=== PATIENT | female | born 1945 | race Caucasian/White ===

== ENCOUNTER 2019-04-25 12:06 | Inpatient (IN) | payer MEDICARE, OTHER ==
[~2019-04-25] VITALS: Ht 162.5 cm; Wt 72.7 kg
[2019-04-25 12:17] VITALS: BP 149/62
[2019-04-25 12:23] LABS: BASO # 0.1 10*3/uL (0.0-0.1); BASO % 0.9 % (0.0-1.0); EOS # 0.3 10*3/uL (0.0-0.4); EOS % 2.5 % (1.0-4.0); HEMATOCRIT 49.2 % (37.0-47.0); HEMOGLOBIN 16.3 g/dl (12.0-16.0); LYMPH # 2.9 10*3/uL (1.3-4.4); LYMPH % 26.4 % (27.0-41.0); MEAN CORPUSCULAR HGB 30.8 pg (27.0-31.0); MEAN CORPUSCULAR HGB CONC 33.1 g/dl (33.0-37.0); MEAN PLATELET VOLUME 9.3 fl (9.6-12.3); MONO % 9.4 % (3.0-9.0); NEUT # 6.6 10*3/uL (2.3-7.9); NEUT % 60.4 % (47.0-73.0); PLATELET COUNT AUTOMATED 318 10*3/uL (130-400); RED BLOOD COUNT 5.29 10*6/uL (4.10-5.10); RED CELL DISTRI WIDTH 12.5 % (0-14.5); WHITE BLOOD COUNT 10.9 10*3/uL (4.8-10.8)
[2019-04-25 12:37] LABS: ACT PARTIAL THROMBO TIME 24.4 SECONDS (20.0-32.1); INTERNATIONAL NORM RATIO 0.9 (2.0-3.5)
[2019-04-25 12:41] LABS: ALBUMIN 3.3 gm/dl (3.1-4.5); ALKALINE PHOSPHATASE 89 U/L (45-117); BUN 14 mg/dl (7-24); CHLORIDE 105 mmol/L (98-107); CREATININE 0.95 mg/dL (0.55-1.02); POTASSIUM 4.2 mmol/L (3.5-5.1); SGOT/AST 20 IU/L (3-35); SGPT/ALT 31 U/L (12-78); SODIUM 138 mmol/L (136-145)
[2019-04-25 12:42] LABS: TROPONIN I < 0.015 ng/ml (<0.045)
[2019-04-25 12:47] VITALS: BP 120/56
[2019-04-25 13:32] VITALS: BP 108/54
--- NOTE | 2019-04-25 13:50 | NUR ---
PT GIVEN ICE WATER REQUESTED. NO OTHER VOICED NEEDS/COMPLAINTS. WILL CONTINUE TO MONITOR.
--- NOTE | 2019-04-25 14:21 | NUR ---
PATIENT EATING MEAL TRAY.
--- NOTE | 2019-04-25 14:45 | NUR ---
PT STABLE AND READY FOR TRANSPORT TO INPATIENT BED.
--- NOTE | 2019-04-25 14:52 | NUR ---
CCA 73, admitted to , under the services of SABINA Ferreira DO with a diagnosis of CHEST PAIN. Chief complaint is C/P AND ANXIETY. Patient arrived via ambulatory from ER. Monitor applied. Initial assessment completed. Vital signs taken and recorded. SABINA FERREIRA DO notified of admission to the unit. Orders received. See assessment for past medical history, medications and allergies. Patient and/or family oriented to unit. [address] visitation policy reviewed. Clothing/patient valuable form completed. SHWETA MORALES
--- NOTE | 2019-04-25 14:54 | NUR ---
PATIENT REQUESTS FLU VACCINE UPON DISCHARGE.
[2019-04-25 15:02] VITALS: BP 135/57
--- NOTE | 2019-04-25 15:07 | NUR ---
PATIENT'S WILL BRING MED LIST IN SO MEDS CAN BE REVIEWED PER POLICY.
[2019-04-25] MEDS ORDERED: WELLBUTRIN XL150 MG PO (15:23)
[2019-04-25] MEDS ORDERED: LEXAPRO10 MG PO (15:24)
[2019-04-25] MEDS ORDERED: KLONOPIN1 M1 PO ×2 (15:25→15:32)
[2019-04-25] MEDS ORDERED: RISPERDAL1 M1 PO (15:25)
[2019-04-25] MEDS ORDERED: LIPITOR20 MG PO (15:26)
[2019-04-25] MEDS ORDERED: Synthroid,Levo75 MCG PO (15:27)
[2019-04-25] MEDS ORDERED: ASPIRIN CHEWABL81 MG PO (15:27)
[2019-04-25] MEDS ORDERED: ZANAFLEX4 M1 PO (15:27)
[2019-04-25] MEDS ORDERED: INCRUSE ELLI62.5 MCG INH (15:29)
[2019-04-25] MEDS ORDERED: SYMB160 INH (15:31)
[2019-04-25] MEDS ORDERED: VITAMIN B121000 MC1 PO (15:34)
[2019-04-25] MEDS ORDERED: FISH OIL 1,2001 EACH PO (15:35)
[2019-04-25] MEDS ORDERED: D3-20002000 UNIT PO (15:38)
--- NOTE | 2019-04-25 15:39 | NUR ---
MED REC UPDATED PER POLICY.
--- NOTE | 2019-04-25 15:55 | NUR ---
PRINCESS BAILON NOTIFIED OF CONSULT.
--- NOTE | 2019-04-25 15:56 | NUR ---
'S OFFICE NOTIFIED OF CONSULT.
--- NOTE | 2019-04-25 16:34 | NUR ---
PT REQUESTED PO KLONIPIN PER PRN ORDER FOR C/O INCREASED ANXIETY. WILL MONITOR EFFECTIVENESS. FAMILY AT BEDSIDE.
--- NOTE | 2019-04-25 16:48 | NUR ---
IN TO SEE PATIENT.
[2019-04-25 20:00] VITALS: BP 147/70
[2019-04-26] VITALS: BP 131/60
[2019-04-26 06:41] LABS: BASO % 0.1 % (0.0-1.0); HEMATOCRIT 44.8 % (37.0-47.0); LYMPH # 1.3 10*3/uL (1.3-4.4); LYMPH % 7.6 % (27.0-41.0); MEAN CELL VOLUME 92.2 fl (81.0-99.0); MEAN CORPUSCULAR HGB 30.9 pg (27.0-31.0); MEAN CORPUSCULAR HGB CONC 33.5 g/dl (33.0-37.0); MEAN PLATELET VOLUME 9.6 fl (9.6-12.3); MONO # 0.5 10*3/uL (0.1-1.0); MONO % 2.9 % (3.0-9.0); NEUT # 15.4 10*3/uL (2.3-7.9); NEUT % 88.8 % (47.0-73.0); PLATELET COUNT AUTOMATED 314 10*3/uL (130-400); RED BLOOD COUNT 4.86 10*6/uL (4.10-5.10); RED CELL DISTRI WIDTH 12.2 % (0-14.5); WHITE BLOOD COUNT 17.4 10*3/uL (4.8-10.8)
[2019-04-26 06:54] LABS: ALBUMIN 2.8 gm/dl (3.1-4.5); ALKALINE PHOSPHATASE 72 U/L (45-117); BUN 17 mg/dl (7-24); CHLORIDE 108 mmol/L (98-107); CHOLESTEROL 124 mg/dL (<200); CREATININE 0.94 mg/dL (0.55-1.02); FREE T4 1.47 ng/dl (0.76-1.46); HDL CHOLESTEROL 51 mg/dl (40-60); LDL CHOLESTEROL 65 mg/dL (9-159); PHOSPHOROUS 2.9 mg/dL (2.5-4.9); SGOT/AST 14 IU/L (3-35); SGPT/ALT 22 U/L (12-78); SODIUM 138 mmol/L (136-145); TOTAL PROTEIN 6.2 gm/dL (6.4-8.2); TRIGLYCERIDES 42 mg/dl (<150); VLDL CHOLESTEROL 8 mg/dL (6-40)
[2019-04-26 07:00] LABS: POTASSIUM 4.2 mmol/L (3.5-5.1)
--- NOTE | 2019-04-26 07:20 | NUR ---
ARRIVED ON SHIFT, INTRODUCED TO PATIENT, BEDSIDE REPORT RECEIVED, WHITE BOARD UPDATED, NO NEEDS VOICED AT THIS TIME.
--- NOTE | 2019-04-26 07:42 | NUR ---
Shift chart check completed.
[2019-04-26 08:00] VITALS: BP 118/60
--- NOTE | 2019-04-26 09:00 | NUR ---
Theater Manager in to talk to patient. Patient states lives at home with . There are few steps in the home. Physician: harris sahu Pharmacy: [facility] [place] [facility]: none Patient's level of ADLs: INDEPENDENT Patient has working utilities: all working DME: none Follow-up physician's appointment after d/c: will be made by hospitalist nurse director upon discharge Does patient want to access PORTAL?: no Discharge plan discussed with patient, she is independent in adls and ambulation she states she will return home when medically stable and denies any home needs. EVELIN VALDIVIA
[2019-04-26 12:00] VITALS: BP 131/65
--- NOTE | 2019-04-26 14:28 | NUR ---
A 73, admitted to 5E, under the services of SABINA Ferreira DO with a diagnosis of UNCONTROLLED DIABETES. Chief complaint is ELEVATED BLOOS SUGAR. Patient arrived via wheel chair from ER. Monitor applied. Initial assessment completed. Vital signs taken and recorded. SABINA FERREIRA DO notified of admission to the unit. Orders received. See assessment for past medical history, medications and allergies. Patient and/or family oriented to unit. [facility] visitation policy reviewed. Clothing/patient valuable form completed. CALL PLACED TO DR. GAYTAN, ORDERS FOR LABS, PODIATRY CONSULT, GLUCOSE MONITOR AND NCS DIET. DR GAYTAN VERSED HE WOULD BE IN TO COMPLETE ALL OTHER ORDERS. LATOYA LANDRY
[2019-04-26 16:00] VITALS: BP 112/52
--- NOTE | 2019-04-26 16:30 | NUR ---
CALL PLACED TO PODIATRY ASVISED SHE WOULD BE UP TO SEE PATIENT.
[2019-04-26 20:00] VITALS: BP 125/54
--- NOTE | 2019-04-26 23:49 | NUR ---
24 HR chart check completed.
[2019-04-27] VITALS: BP 100/50
--- NOTE | 2019-04-27 07:15 | NUR ---
ARRIVED ON SHIFT, INTRODUCED TO PATIENT, BEDSIDE REPORT RECEIVED, WHITE BOARD UPDATED, NO NEEDS VOICED AT THIS TIME.
[2019-04-27 07:47] VITALS: BP 124/68
--- NOTE | 2019-04-27 07:50 | NUR ---
VITAL SIGNS STABLE, A&O X3, + PERIPHERAL PULSES, NO COMPLAINTS OF PAIN AT THIS TIME, LUNG SOUNDS WHEEZE B/L UPPER LOBES OTHERWISE CLEAR, HEART SOUNDS NORMAL, BOWEL SOUNDS X4, ABDOMEN SOFT, NON-DISTENDED, NON-TENDER, PT PLEASANT AND COOPERATIVE. LEFT ARM IV SITE DRY, INTACT, NO S/S OF INFECTION. NO OTHER COMPLAINTS AT THIS TIME, WILL CONTINUE TO MONITOR. LUIS OLIVEROS
--- NOTE | 2019-04-27 08:16 | NUR ---
Shift chart check completed.
--- NOTE | 2019-04-27 09:00 | NUR ---
case management visits with patient, she will return home today and denies any home needs
--- NOTE | 2019-04-27 10:01 | NUR ---
FAMILY VISITING. DR WILLETT TO SEE HER. SITTING IN BED WATCHING TV. NO OTHER COMPLAINTS AT THIS TIME, WILL CONTINUE TO MONITOR. DOMO ZIMMERMAN
[2019-04-27] MEDS ORDERED: ZITHROMAX500 MG PO (10:04)
[2019-04-27] MEDS ORDERED: PREDNISONE10 MG PO (10:04)
[2019-04-27] MEDS ORDERED: KLONOPIN1 M1 PO ×2 (10:11→10:57)
[2019-04-27] MEDS ORDERED: VIBRAMYCIN100 MG PO (10:57)
--- NOTE | 2019-04-27 11:15 | NUR ---
Discharge instructions reviewed with patient/family. Patient receptive and verbalizes understanding. Follow-up care arranged. Written instructions given to patient/family. Patient took all belongings. Hep Lock and telemetry removed, script given to her. Condition stable. Discharged via wheelchair. LUIS CHENG [facility] TAMERA BACA
== END 2019-04-27 11:15 | disposition home or self-care (01) | DRG 191 ==
LOC: ED 12:06 → EDHOLD 14:20 → 5E 14:20
PROVIDERS: Emergency Medicine; Registered Nurse; ADMIT Family Medicine
DX: J44.1 Chronic obstructive pulmonary disease with (acute) exacerbation (principal); E44.0 Moderate protein-calorie malnutrition; F33.1 Major depressive disorder, recurrent, moderate; E78.00 Pure hypercholesterolemia, unspecified; F41.1 Generalized anxiety disorder; E03.9 Hypothyroidism, unspecified; R07.9 Chest pain, unspecified; F17.210 Nicotine dependence, cigarettes, uncomplicated; E78.5 Hyperlipidemia, unspecified; D72.829 Elevated white blood cell count, unspecified; T38.0X5A Adverse effect of glucocorticoids and synthetic analogues, initial encounter; Y92.89 Other specified places as the place of occurrence of the external cause; Z88.0 Allergy status to penicillin; Z90.49 Acquired absence of other specified parts of digestive tract; Z90.710 Acquired absence of both cervix and uterus; Z98.51 Tubal ligation status; Z83.3 Family history of diabetes mellitus; Z82.49 Family history of ischemic heart disease and other diseases of the circulatory system; Z79.82 Long term (current) use of aspirin; Z79.899 Other long term (current) drug therapy; Z71.6 Tobacco abuse counseling; Z88.5 Allergy status to narcotic agent; Z68.27 Body mass index [BMI] 27.0-27.9, adult

== ENCOUNTER 2020-09-14 02:37 | Observation (INO) | payer MEDICARE, OTHER ==
[~2020-09-14] VITALS: Ht 162.5 cm; Wt 80.0 kg
[2020-09-14] VITALS (8 sets, daily range): BP systolic 108–143; BP diastolic 33–54
[~2020-09-14 02:37] MED LIST: ASPIRIN CHEWABL81 MG PO; D3-20002000 UNIT PO; FISH OIL 1,2001 EACH PO; INCRUSE ELLI62.5 MCG INH; KLONOPIN1 M1 PO; LEXAPRO10 MG PO; LIPITOR20 MG PO; PREDNISONE10 MG PO; RISPERDAL1 M1 PO; SYMB160 INH; Synthroid,Levo75 MCG PO; VIBRAMYCIN100 MG PO; VITAMIN B121000 MC1 PO; WELLBUTRIN XL150 MG PO; ZANAFLEX4 M1 PO; ZITHROMAX500 MG PO
[2020-09-14 03:29] LABS: BASO # 0.1 10*3/uL (0.0-0.1); BASO % 0.9 % (0.0-1.0); EOS # 0.2 10*3/uL (0.0-0.4); EOS % 2.2 % (1.0-4.0); HEMATOCRIT 45.4 % (37.0-47.0); LYMPH # 1.8 10*3/uL (1.3-4.4); LYMPH % 16.9 % (27.0-41.0); MEAN CELL VOLUME 92.8 fl (81.0-99.0); MEAN CORPUSCULAR HGB 30.5 pg (27.0-31.0); MEAN CORPUSCULAR HGB CONC 32.8 g/dl (33.0-37.0); MEAN PLATELET VOLUME 9.5 fl (9.6-12.3); MONO # 0.9 10*3/uL (0.1-1.0); MONO % 8.4 % (3.0-9.0); NEUT # 7.6 10*3/uL (2.3-7.9); NEUT % 71.2 % (47.0-73.0); PLATELET COUNT AUTOMATED 264 10*3/uL (130-400); RED BLOOD COUNT 4.89 10*6/uL (4.10-5.10); RED CELL DISTRI WIDTH 12.3 % (0-14.5); WHITE BLOOD COUNT 10.6 10*3/uL (4.8-10.8)
[2020-09-14 03:46] LABS: ALBUMIN 3.5 gm/dl (3.1-4.5); ALKALINE PHOSPHATASE 82 U/L (45-117); BUN 11 mg/dl (7-24); CHLORIDE 103 mmol/L (98-107); CREATININE 1.24 mg/dL (0.55-1.02); POTASSIUM 3.9 mmol/L (3.5-5.1); SGOT/AST 28 IU/L (3-35); SGPT/ALT 46 U/L (12-78); SODIUM 137 mmol/L (136-145); TOTAL PROTEIN 6.7 gm/dL (6.4-8.2)
[2020-09-14 03:53] LABS: TROPONIN I < 0.015 ng/ml (<0.045)
[2020-09-14 07:34] LABS: BILIRUBIN Negative (Negative); BLOOD Negative (Negative); CLARITY Clear (Clear); COLOR Yellow (Yellow); GLUCOSE Negative (Negative); KETONE Negative (Negative); LEUKO ESTERASE Negative (Negative); NITRITE Negative (Negative); SPECIFIC GRAVITY <= 1.005 (1.001-1.030); UROBILINOGEN 0.2 E.U./dl (0.0-1.0)
[2020-09-14 07:50] LABS: BACTERIA TRACE; WBC 0-2 wbc/hpf (0-5)
[2020-09-14] MEDS ORDERED: VITAMIN C500 M4 PO (11:28)
[2020-09-14] MEDS ORDERED: MAGNESIUM500 MG PO (11:29)
[2020-09-14] MEDS ORDERED: VITAMIN E200 UNIT PO (11:31)
[2020-09-14] MEDS ORDERED: VITAMIN D350 MC2 PO (11:32)
[2020-09-14] MEDS ORDERED: TRILIGY INH (11:33)
[2020-09-15] VITALS: BP 107/44
[2020-09-15 06:54] LABS: BASO # 0.1 10*3/uL (0.0-0.1); BASO % 1.1 % (0.0-1.0); EOS # 0.3 10*3/uL (0.0-0.4); EOS % 4.9 % (1.0-4.0); HEMATOCRIT 45.7 % (37.0-47.0); LYMPH # 2.2 10*3/uL (1.3-4.4); LYMPH % 35.5 % (27.0-41.0); MEAN CELL VOLUME 94.6 fl (81.0-99.0); MEAN CORPUSCULAR HGB CONC 31.7 g/dl (33.0-37.0); MEAN PLATELET VOLUME 9.7 fl (9.6-12.3); MONO # 0.6 10*3/uL (0.1-1.0); NEUT % 48.2 % (47.0-73.0); PLATELET COUNT AUTOMATED 257 10*3/uL (130-400); RED BLOOD COUNT 4.83 10*6/uL (4.10-5.10); RED CELL DISTRI WIDTH 12.5 % (0-14.5); WHITE BLOOD COUNT 6.3 10*3/uL (4.8-10.8)
[2020-09-15 07:08] LABS: ACT PARTIAL THROMBO TIME 23.6 SECONDS (20.0-32.1)
[2020-09-15 07:12] LABS: ALBUMIN 3.1 gm/dl (3.1-4.5); ALKALINE PHOSPHATASE 71 U/L (45-117); BUN 11 mg/dl (7-24); CHLORIDE 108 mmol/L (98-107); CHOLESTEROL 118 mg/dL (<200); CREATININE 1.02 mg/dL (0.55-1.02); FREE T4 1.43 ng/dl (0.76-1.46); HDL CHOLESTEROL 59 mg/dl (40-60); LDL CHOLESTEROL 45 mg/dL (9-159); POTASSIUM 4.2 mmol/L (3.5-5.1); SGOT/AST 23 IU/L (3-35); SGPT/ALT 38 U/L (12-78); SODIUM 139 mmol/L (136-145); TOTAL PROTEIN 6.2 gm/dL (6.4-8.2); TRIGLYCERIDES 72 mg/dl (<150); VLDL CHOLESTEROL 14 mg/dL (6-40)
[2020-09-15 08:00] VITALS: BP 120/58
== END 2020-09-15 11:00 | disposition home or self-care (01) ==
LOC: ED 02:37 → 5E 06:57 → EDHOLD 06:57 → 5E 08:53
PROVIDERS: Emergency Medicine; Social Worker Clinical; ADMIT Internal Medicine; ATTEND Internal Medicine
DX: R55 Syncope and collapse (principal); R51.9 Headache, unspecified; N17.0 Acute kidney failure with tubular necrosis; F41.1 Generalized anxiety disorder; F32.9 Major depressive disorder, single episode, unspecified; E03.9 Hypothyroidism, unspecified; N18.9 Chronic kidney disease, unspecified; R00.1 Bradycardia, unspecified; Z90.49 Acquired absence of other specified parts of digestive tract; Z90.710 Acquired absence of both cervix and uterus; Z90.89 Acquired absence of other organs; Z88.8 Allergy status to other drugs, medicaments and biological substances

== ENCOUNTER → 2021-06-26 | Outpatient (CLI) | payer MEDICARE, OTHER ==
[~2021-06-26] MED LIST changes: +MAGNESIUM500 MG PO; +TRILIGY INH; +VITAMIN C500 M4 PO; +VITAMIN D350 MC2 PO; +VITAMIN E200 UNIT PO
== END ==
LOC: US 13:16
PROVIDERS: ATTEND Orthopaedic Surgery
DX: S83.92XA Sprain of unspecified site of left knee, initial encounter (principal); D16.22 Benign neoplasm of long bones of left lower limb; M17.0 Bilateral primary osteoarthritis of knee; M79.605 Pain in left leg; D48.0 Neoplasm of uncertain behavior of bone and articular cartilage; M25.362 Other instability, left knee; M17.12 Unilateral primary osteoarthritis, left knee; X58.XXXA Exposure to other specified factors, initial encounter; Y93.89 Activity, other specified; Y92.89 Other specified places as the place of occurrence of the external cause; Y99.8 Other external cause status

== ENCOUNTER → 2021-06-29 | Outpatient (CLI) | payer MEDICARE, OTHER | END | disposition home or self-care (01) | LOC: US 13:47 | PROVIDERS: ATTEND Orthopaedic Surgery | DX: I73.9 Peripheral vascular disease, unspecified (principal); M25.362 Other instability, left knee; M17.0 Bilateral primary osteoarthritis of knee; M25.562 Pain in left knee; M17.12 Unilateral primary osteoarthritis, left knee; D16.22 Benign neoplasm of long bones of left lower limb ==

== ENCOUNTER 2021-07-03 10:22 | Emergency (ER) | payer OTHER, MEDICARE ==
[~2021-07-03] VITALS: Ht 162.5 cm; Wt 81.6 kg
[2021-07-03 10:34] VITALS: BP 106/50
[2021-07-03 11:02] LABS: BASO # 0.1 10*3/uL (0.0-0.1); BASO % 1.2 % (0.0-1.0); EOS # 0.3 10*3/uL (0.0-0.4); EOS % 3.8 % (1.0-4.0); HEMATOCRIT 42.3 % (37.0-47.0); LYMPH # 1.5 10*3/uL (1.3-4.4); LYMPH % 22.1 % (27.0-41.0); MEAN CELL VOLUME 92.8 fl (81.0-99.0); MEAN CORPUSCULAR HGB 30.5 pg (27.0-31.0); MEAN CORPUSCULAR HGB CONC 32.9 g/dl (33.0-37.0); MEAN PLATELET VOLUME 9.4 fl (9.6-12.3); MONO # 0.7 10*3/uL (0.1-1.0); MONO % 10.2 % (3.0-9.0); NEUT # 4.1 10*3/uL (2.3-7.9); NEUT % 62.4 % (47.0-73.0); PLATELET COUNT AUTOMATED 271 10*3/uL (130-400); RED BLOOD COUNT 4.56 10*6/uL (4.10-5.10); WHITE BLOOD COUNT 6.6 10*3/uL (4.8-10.8)
[2021-07-03 11:13] LABS: ACT PARTIAL THROMBO TIME 24.8 SECONDS (20.0-32.1)
[2021-07-03 11:19] LABS: ALBUMIN 3.1 gm/dl (3.1-4.5); ALKALINE PHOSPHATASE 82 U/L (45-117); BUN 16 mg/dl (7-24); CHLORIDE 111 mmol/L (98-107); CREATININE 1.04 mg/dL (0.55-1.02); LIPASE 108 U/L (73-393); SGOT/AST 18 IU/L (3-35); SGPT/ALT 28 U/L (12-78); SODIUM 139 mmol/L (136-145); TOTAL PROTEIN 6.5 gm/dL (6.4-8.2)
== END 2021-07-03 13:24 | disposition left against medical advice (07) ==
LOC: ED 10:22
PROVIDERS: Emergency Medicine
DX: R07.9 Chest pain, unspecified (principal); Z88.6 Allergy status to analgesic agent; Z79.899 Other long term (current) drug therapy; Z79.82 Long term (current) use of aspirin; Z90.710 Acquired absence of both cervix and uterus; Z90.49 Acquired absence of other specified parts of digestive tract; Z98.890 Other specified postprocedural states; Z98.51 Tubal ligation status; Z87.891 Personal history of nicotine dependence; V49.59XA Passenger injured in collision with other motor vehicles in traffic accident, initial encounter; Y93.89 Activity, other specified; Y92.89 Other specified places as the place of occurrence of the external cause; Y99.8 Other external cause status

== ENCOUNTER 2024-12-12 11:25 | Inpatient (IN) | payer MEDICARE, OTHER ==
[~2024-12-12] VITALS: Ht 160 cm; Wt 88.1 kg
[2024-12-12 11:32] VITALS: BP 75/51
[2024-12-12 12:01] LABS: MEAN CELL VOLUME 90.2 fl (81.0-99.0); MEAN CORPUSCULAR HGB 29.3 pg (27.0-31.0); MEAN PLATELET VOLUME 8.6 fl (9.6-12.3); NUCLEATED RED BLOOD CELL 0.0 % (0.0-0.0); NUCLEATED RED BLOOD CELL 0.0 10*3/uL (0.0-0.0); PLATELET COUNT AUTOMATED 400 10*3/uL (130-400); RED CELL DISTRI WIDTH 14.6 % (0-14.5)
[2024-12-12] MEDS ORDERED: TRELEGY ELLIPT1 EACH IH (12:01)
[2024-12-12 12:02] LABS: MANUAL DIFF REFLEX YES
[2024-12-12] MEDS ORDERED: ZINC50 M4 PO (12:04)
[2024-12-12] MEDS ORDERED: B COMPLEX1 EACH PO (12:04)
[2024-12-12] MEDS ORDERED: CO Q-10200 MG PO (12:05)
[2024-12-12] MEDS ORDERED: MULTI-VITAMIN1 EACH PO (12:05)
[2024-12-12] MEDS ORDERED: LIFE-LINE GLUC480 ML PO (12:06)
[2024-12-12] MEDS ORDERED: ELIQUIS5 M1 PO (12:06)
[2024-12-12] MEDS ORDERED: HYDROCODONE-AC1 EAC1 PO (12:07)
[2024-12-12] MEDS ORDERED: PANTOPRAZOLE SO40 MG PO (12:08)
[2024-12-12 12:21] LABS: PLATELET SUFFICIENCY NORMAL (NORMAL)
[2024-12-12 12:25] LABS: BUN 33 mg/dl (9-23); CPK 30 U/L (34-171); SGPT/ALT 43 U/L (5-49)
[2024-12-12 12:54] VITALS: BP 117/62
[2024-12-12] MEDS ORDERED: SODIUM CHLORIDE 0.9% 1,000 ML IV SCH (13:45)
[2024-12-12] MEDS ORDERED: ACETAMINOPHEN 325 MG TAB PO PRN (15:25)
[2024-12-12] MEDS ORDERED: BISACODYL 10 MG SUPP R PRN (15:25)
[2024-12-12] MEDS ORDERED: BISACODYL 5 MG TAB PO PRN (15:25)
[2024-12-12] MEDS ORDERED: ACETAMINOPHEN 650 MG SUPP R PRN (15:25)
[2024-12-12] MEDS ORDERED: Ondansetron Hydrochloride 4 MG/2 ML VIAL IV PRN (15:25)
[2024-12-12] MEDS ORDERED: Levalbuterol Hydrochloride 0.63 MG VIAL NEB SCH (15:30)
[2024-12-12] MEDS ORDERED: Acetaminophen/Hydrocodone Bi 3 TAB PACK PO PRN (16:30)
[2024-12-12] MEDS ORDERED: Acetaminophen/Hydrocodone 5 MG/325 MG TABLET PO PRN ×2 (16:40)
[2024-12-12 17:31] VITALS: BP 138/67
[2024-12-12] MEDS ORDERED: ASCORBIC ACID 500 MG TAB PO SCH (18:00)
[2024-12-12] MEDS ORDERED: APIXABAN 5 MG TAB PO SCH (18:00)
[2024-12-12] MEDS ORDERED: VANCOMYCIN/WATER FOR INJ (PEG) 300 ML IV SCH (18:00)
[2024-12-12 18:01] VITALS: BP 98/62
[2024-12-12 20:00] VITALS: BP 98/51
[2024-12-12] MEDS ORDERED: ESCITALOPRAM OXALATE 10 MG TAB PO SCH (22:00)
[2024-12-12] MEDS ORDERED: GUAIFENESIN 600 MG TAB ER PO SCH (22:00)
[2024-12-13] VITALS: BP 122/63
[2024-12-13 06:41] LABS: MEAN CELL VOLUME 91.5 fl (81.0-99.0); MEAN CORPUSCULAR HGB 29.3 pg (27.0-31.0); MEAN PLATELET VOLUME 8.7 fl (9.6-12.3); NUCLEATED RED BLOOD CELL 0.0 % (0.0-0.0); NUCLEATED RED BLOOD CELL 0.0 10*3/uL (0.0-0.0); PLATELET COUNT AUTOMATED 361 10*3/uL (130-400); RED CELL DISTRI WIDTH 14.8 % (0-14.5)
[2024-12-13 07:15] LABS: BUN 25 mg/dl (9-23); LDL CHOLESTEROL 62 mg/dL (9-159)
[2024-12-13 07:17] LABS: VITAMIN D, 25-HYDROXY 120.4 ng/mL (30-100)
[2024-12-13 07:44] LABS: MANUAL DIFF REFLEX YES
[2024-12-13 07:49] LABS: BASOPHILS 1 % (0-1); PLATELET SUFFICIENCY NORMAL (NORMAL)
[2024-12-13 08:00] VITALS: BP 140/53
[2024-12-13] MEDS ORDERED: UBIDECARENONE 200 MG PO SCH (10:00)
[2024-12-13] MEDS ORDERED: Cholecalciferol 2,000 UNIT TABLET (50 MCG) PO SCH (10:00)
[2024-12-13] MEDS ORDERED: ASPIRIN, CHEWABLE 81 MG TAB PO SCH ×2 (10:00→22:00)
[2024-12-13] MEDS ORDERED: MULTIVITAMIN 1 TAB TAB PO SCH (10:00)
[2024-12-13] MEDS ORDERED: ZINC SULFATE 220 MG TAB PO SCH (10:00)
[2024-12-13] MEDS ORDERED: GLUCOSAMINE PO SCH (10:00)
[2024-12-13] MEDS ORDERED: CYANOCOBALAMIN 500 MCG TAB PO SCH (10:00)
[2024-12-13] MEDS ORDERED: [UNRECOGNIZED DRUG - OTHER] PO SCH (10:00)
[2024-12-13] MEDS ORDERED: risperiDONE 1 MG TAB PO SCH ×2 (10:00→22:00)
[2024-12-13] MEDS ORDERED: ATORVASTATIN CALCIUM 20 MG TAB PO SCH ×2 (10:00→22:00)
[2024-12-13] MEDS ORDERED: NYSTATIN 15 GM BOT T SCH (10:40)
[2024-12-13 12:00] VITALS: BP 118/57
[2024-12-13 16:00] VITALS: BP 146/64
[2024-12-13 20:00] VITALS: BP 149/61
[2024-12-14] VITALS: BP 131/64
[2024-12-14 05:09] LABS: BUN 24 mg/dl (9-23)
[2024-12-14 05:58] LABS: BASO # 0.0 10*3/uL (0.0-0.1); BASO % 0.3 % (0.0-1.0); EOS # 0.0 10*3/uL (0.0-0.4); EOS % 0.0 % (1.0-4.0); MEAN CELL VOLUME 93.3 fl (81.0-99.0); MEAN CORPUSCULAR HGB 29.2 pg (27.0-31.0); MEAN PLATELET VOLUME 9.0 fl (9.6-12.3); MONO # 0.4 10*3/uL (0.1-1.0); MONO % 2.3 % (3.0-9.0); NEUT # 13.9 10*3/uL (2.3-7.9); NEUT % 90.0 % (47.0-73.0); NUCLEATED RED BLOOD CELL 0.0 % (0.0-0.0); NUCLEATED RED BLOOD CELL 0.0 10*3/uL (0.0-0.0); PLATELET COUNT AUTOMATED 350 10*3/uL (130-400); RED CELL DISTRI WIDTH 14.6 % (0-14.5)
[2024-12-14 08:00] VITALS: BP 139/68
[2024-12-14] MEDS ORDERED: CYANOCOBALAMIN 500 MCG TAB PO SCH (10:00)
[2024-12-14] MEDS ORDERED: Vitamin B Complex and Vitami4 1 TAB TAB PO SCH (10:00)
[2024-12-14] MEDS ORDERED: Vitamin D 1,000 IU TAB (25 MCG) PO SCH (10:00)
[2024-12-14 12:10] VITALS: BP 138/59
[2024-12-14 16:00] VITALS: BP 141/64
[2024-12-14 20:00] VITALS: BP 125/55
[2024-12-14 22:00] VITALS: BP 125/55
[2024-12-15] VITALS: BP 134/65
[2024-12-15 06:15] LABS: MEAN CELL VOLUME 90.4 fl (81.0-99.0); MEAN CORPUSCULAR HGB 29.7 pg (27.0-31.0); MEAN PLATELET VOLUME 9.3 fl (9.6-12.3); NUCLEATED RED BLOOD CELL 0.0 % (0.0-0.0); NUCLEATED RED BLOOD CELL 0.0 10*3/uL (0.0-0.0); PLATELET COUNT AUTOMATED 341 10*3/uL (130-400); RED CELL DISTRI WIDTH 14.7 % (0-14.5)
[2024-12-15 06:26] LABS: BUN 22 mg/dl (9-23); MANUAL DIFF REFLEX YES
[2024-12-15 06:50] LABS: PLATELET SUFFICIENCY NORMAL (NORMAL)
[2024-12-15 08:00] VITALS: BP 164/66
[2024-12-15] MEDS ORDERED: FOAM BANDAGE 5X5 T ONE (10:41)
[2024-12-15 12:00] VITALS: BP 124/42
[2024-12-15 16:00] VITALS: BP 143/60
[2024-12-15 20:00] VITALS: BP 110/80
[2024-12-16] VITALS: BP 126/54
[2024-12-16 06:49] LABS: MEAN CELL VOLUME 91.9 fl (81.0-99.0); MEAN CORPUSCULAR HGB 29.5 pg (27.0-31.0); MEAN PLATELET VOLUME 9.4 fl (9.6-12.3); NUCLEATED RED BLOOD CELL 0.0 % (0.0-0.0); NUCLEATED RED BLOOD CELL 0.0 10*3/uL (0.0-0.0); PLATELET COUNT AUTOMATED 339 10*3/uL (130-400); RED CELL DISTRI WIDTH 15.4 % (0-14.5)
[2024-12-16 06:50] LABS: MANUAL DIFF REFLEX YES
[2024-12-16 07:02] LABS: BUN 22 mg/dl (9-23)
[2024-12-16 07:21] LABS: PLATELET SUFFICIENCY NORMAL (NORMAL)
[2024-12-16 08:00] VITALS: BP 109/73
[2024-12-16 12:00] VITALS: BP 114/44
[2024-12-16] MEDS ORDERED: CIPRO500 MG PO (14:22)
[2024-12-16] MEDS ORDERED: VIBRAMYCIN100 MG PO (14:22)
== END 2024-12-16 16:51 | disposition home or self-care (01) | DRG 871 ==
LOC: ED 11:25 → EDHOLD 14:44 → 4E 14:44
PROVIDERS: Emergency Medicine; Student in an Organized Health Care Education/Training Program; ADMIT Internal Medicine; ATTEND Internal Medicine
DX: A41.9 Sepsis, unspecified organism (principal); J69.0 Pneumonitis due to inhalation of food and vomit; J44.1 Chronic obstructive pulmonary disease with (acute) exacerbation; I50.32 Chronic diastolic (congestive) heart failure; Z78.9 Other specified health status; K20.90 Esophagitis, unspecified without bleeding; D72.825 Bandemia; E03.9 Hypothyroidism, unspecified; R73.9 Hyperglycemia, unspecified; I48.0 Paroxysmal atrial fibrillation; E78.2 Mixed hyperlipidemia; I95.9 Hypotension, unspecified; N18.9 Chronic kidney disease, unspecified; F41.1 Generalized anxiety disorder; F32.A Depression, unspecified; Z88.5 Allergy status to narcotic agent; Z90.710 Acquired absence of both cervix and uterus; Z90.49 Acquired absence of other specified parts of digestive tract; Z90.89 Acquired absence of other organs; Z87.891 Personal history of nicotine dependence; Z82.49 Family history of ischemic heart disease and other diseases of the circulatory system; Z83.3 Family history of diabetes mellitus; Z79.82 Long term (current) use of aspirin; Z79.899 Other long term (current) drug therapy

== ENCOUNTER → 2025-01-12 | Outpatient (CLI) | payer MEDICARE, OTHER ==
[~2025-01-12] MED LIST changes: +B COMPLEX1 EACH PO; +CIPRO500 MG PO; +CO Q-10200 MG PO; +ELIQUIS5 M1 PO; +HYDROCODONE-AC1 EAC1 PO; +LIFE-LINE GLUC480 ML PO; +MULTI-VITAMIN1 EACH PO; +PANTOPRAZOLE SO40 MG PO; +TRELEGY ELLIPT1 EACH IH; +ZINC50 M4 PO
== END ==
LOC: CT 10:58
PROVIDERS: ATTEND Internal Medicine Critical Care Medicine
DX: R91.8 Other nonspecific abnormal finding of lung field (principal)

== ENCOUNTER → 2025-03-29 | Outpatient (CLI) | payer MEDICARE, OTHER | END | disposition home or self-care (01) | LOC: CT 03-26 11:00 | PROVIDERS: ATTEND Internal Medicine Critical Care Medicine | DX: J92.9 Pleural plaque without asbestos (principal); J84.10 Pulmonary fibrosis, unspecified; J44.9 Chronic obstructive pulmonary disease, unspecified; R22.2 Localized swelling, mass and lump, trunk; Z68.34 Body mass index [BMI] 34.0-34.9, adult; Z87.891 Personal history of nicotine dependence; I25.10 Atherosclerotic heart disease of native coronary artery without angina pectoris; I70.0 Atherosclerosis of aorta; N28.89 Other specified disorders of kidney and ureter; M47.814 Spondylosis without myelopathy or radiculopathy, thoracic region; M19.011 Primary osteoarthritis, right shoulder; M19.012 Primary osteoarthritis, left shoulder ==